=== PATIENT | female | born 1985 | race Caucasian/White ===

== ENCOUNTER → 2017-03-13 | Outpatient (CLI) | payer OTHER ==
[~2017-03-13] MED LIST: ACET325 PO; ALBU90OI INH; ALBU90OI6 INH; ALBU90OI61 INH; AMOX500 PO; CEPH500 PO; CETI10 PO; CIPR500 PO; CODGUAEL PO; CRUTCH3 USE; DIPH50 PO; ESTNORT; EXCEDRIN MIGRAINE; FLUSAL2505 IH; GLYB1.5 PO; HYDACE5 PO; IBUP600 PO; IBUP800 PO; LABE100 PO; LEVSOD50 PO; LORPSEER12 PO; NITR100CA PO; OXYACE5T PO; Omeprazole20 M1 PO; PRED20 PO; PREN-16 PO; PROM25 PO; RANI150 PO; SPIR25 PO; SULTRISS PO; TIZANIDINE HCL4 MG PO; TOPI25 PO; TYLENOL; VENL75 PO; VENL75ER PO
[2017-03-13 19:36] LABS: BASOPHILS ABSOLUTE AUTO 0.03 K/mm3 (0.00-0.23); BASOPHILS PERCENT AUTO 0 % (0-2); EOSINOPHILS ABSOLUTE AUTO 0.36 K/mm3 (0.00-0.68); EOSINOPHILS PERCENT AUTO 3 % (0-6); IMMATURE GRAN ABSOLUTE AUTO 0.03 K/mm3 (0.00-0.10); IMMATURE GRAN PERCENT AUTO 0 % (0-1); LYMPHOCYTES ABSOLUTE AUTO 2.75 K/mm3 (0.84-5.20); LYMPHOCYTES PERCENT AUTO 23 % (21-46); MONOCYTES ABSOLUTE AUTO 0.98 K/mm3 (0.16-1.47); MONOCYTES PERCENT AUTO 8 % (4-13); Mean Corpuscular HGB 27.5 pg (26.0-34.0); Mean Corpuscular HGB Conc 32.6 g/dL (31.5-36.5); Mean Corpuscular Volume 84 fL (80-100); Mean Platelet Volume 11.6 fL (9.1-12.4); NEUTROPHILS PERCENT AUTO 65 % (41-73); Platelet Count 298 K/mm3 (150-400); RDW Standard Deviation 46.5 fL (35.1-46.3); White Blood Cell Count 11.85 K/mm3 (4.00-11.30)
== END ==
LOC: LAB SHORT 15:20
PROVIDERS: Family Medicine
DX: R23.8 Other skin changes (principal); L02.211 Cutaneous abscess of abdominal wall
CPT/HCPCS: 85025

== ENCOUNTER → 2018-09-07 | Outpatient (CLI) | payer OTHER | LOC: LAB SHORT 14:45 → LAB 14:45 | DX: L02.413 Cutaneous abscess of right upper limb (principal) | CPT/HCPCS: 87070; 87075; 87077; 87186; 87205 ==

== ENCOUNTER → 2018-10-13 | Outpatient (CLI) | payer OTHER | LOC: LAB SHORT 17:15 → LAB UCHC 17:15 → LAB FUT 10-13 16:00 | DX: R19.7 Diarrhea, unspecified (principal) | CPT/HCPCS: 87493 ==

== ENCOUNTER → 2018-12-15 | Outpatient (CLI) | payer OTHER ==
[2018-12-15 15:10] LABS: Microalb/Creat Ratio UR, Rand Unable to Calculate mg/g (0.000-30.000); Microalbumin, Random Urine <5.000 mg/L (0.000-20.000)
== END ==
LOC: LAB UCHC 11:37 → LAB SHORT 11:37 → LAB FUT 11-23 10:30
PROVIDERS: Family Medicine
DX: E11.9 Type 2 diabetes mellitus without complications (principal)
CPT/HCPCS: 82043; 82570

== ENCOUNTER → 2019-05-04 | Outpatient (CLI) | payer OTHER ==
[2019-05-05 15:11] LABS: HPV 16 Negative (Negative); HPV 18 Negative (Negative); HPV OTHER HR TYPES Positive (Negative)
== END ==
LOC: LAB 12:24 → LAB SHORT 12:24
PROVIDERS: Registered Nurse Community Health
DX: Z12.4 Encounter for screening for malignant neoplasm of cervix (principal)
CPT/HCPCS: 87624; G0123

== ENCOUNTER → 2019-08-16 | Outpatient (CLI) | payer OTHER | END | disposition home or self-care (01) | LOC: LAB SHORT 09:35 → LAB 09:35 | DX: R11.2 Nausea with vomiting, unspecified (principal) | CPT/HCPCS: 87338 ==

== ENCOUNTER 2020-02-02 16:45 | Emergency (ER) | payer OTHER ==
[~2020-02-02] VITALS: Ht 167.6 cm; Wt 154.2 kg
[~2020-02-02 16:45] MED LIST changes: +ACET500 PO; +BENADRYL25 MG PO; +CLON.5 PO; +CYCL10 PO; +FLUV50 PO; +FURO20 PO; +GABA300 PO; +METF500 PO; +NYSTATIN CREAM TOP
[2020-02-02] MEDS ORDERED: CEPH500 PO (17:59)
[2020-02-02] MEDS ORDERED: Norco 5-325 Ta1 EACH PO (17:59)
== END 2020-02-02 19:56 | disposition home or self-care (01) ==
LOC: ER 16:45
DX: S68.512A Complete traumatic transphalangeal amputation of left thumb, initial encounter (principal); J45.909 Unspecified asthma, uncomplicated; F32.9 Major depressive disorder, single episode, unspecified; K21.9 Gastro-esophageal reflux disease without esophagitis; Z87.891 Personal history of nicotine dependence; Z91.012 Allergy to eggs; Z91.030 Bee allergy status; Z88.5 Allergy status to narcotic agent; Z91.09 Other allergy status, other than to drugs and biological substances; Z79.899 Other long term (current) drug therapy; Z79.84 Long term (current) use of oral hypoglycemic drugs; W27.0XXA Contact with workbench tool, initial encounter
CPT/HCPCS: 11044; 73140; 96365-59; 96375-59; 99283-25; A9270; J0690; J2060

== ENCOUNTER 2020-02-12 13:54 | Emergency (ER) | payer OTHER ==
[~2020-02-12] VITALS: Ht 167.6 cm; Wt 154.2 kg
[~2020-02-12 13:54] MED LIST changes: +Norco 5-325 Ta1 EACH PO
== END 2020-02-12 15:32 | disposition home or self-care (01) ==
LOC: ER 13:54
DX: S61.012D Laceration without foreign body of left thumb without damage to nail, subsequent encounter (principal); J45.909 Unspecified asthma, uncomplicated; K21.9 Gastro-esophageal reflux disease without esophagitis; F32.9 Major depressive disorder, single episode, unspecified; Z79.84 Long term (current) use of oral hypoglycemic drugs; Z79.899 Other long term (current) drug therapy; Z88.5 Allergy status to narcotic agent; Z91.030 Bee allergy status; Z91.09 Other allergy status, other than to drugs and biological substances; Z91.012 Allergy to eggs; Z91.018 Allergy to other foods; Z87.891 Personal history of nicotine dependence; W27.0XXD Contact with workbench tool, subsequent encounter
CPT/HCPCS: 64450; 99282-25

== ENCOUNTER 2020-06-19 08:34 | Day surgery (SDC) | payer OTHER ==
[~2020-06-19] VITALS: Ht 167.6 cm; Wt 159.4 kg
[~2020-06-19 08:34] MED LIST changes: +ALDACTONE100 MG PO; +ATIVAN0.5 MG PO; +Flonase 0.05% N16 GM; +GABA100 PO; +GLIP5 PO; +LAMO100 PO; +MONT10T PO; +OMEP20ER PO; +ONDA4 PO; +TOPI100 PO; +VENL150ER PO; +[UNRECOGNIZED DRUG - OTHER] PO
--- NOTE | 2020-06-19 09:30 | NUR ---
History, Chart, Medications and Allergies reviewed before start of procedure. Patient confirms NPO status and agrees with scheduled surgery.
[2020-06-19] MEDS ORDERED: LAMICTAL25 M2 PO (09:42)
[2020-06-19] MEDS ORDERED: EUTHYROX50 MCG PO (09:43)
[2020-06-19] MEDS ORDERED: ACETAMINOPHEN500 M2 PO (09:45)
[2020-06-19] MEDS ORDERED: PROAIR RESPICL90 MCG INH (09:46)
[2020-06-19] MEDS ORDERED: ZYRTEC10 M1 PO (09:49)
--- NOTE | 2020-06-19 11:01 | NUR ---
06/19/20 1101 Lucio Kumar MONITOR INTACT WITH CONTINUOUS PULSE OXIMETRY AND INTERMITTENT BP. History, Chart, Medications and Allergies reviewed before start of procedure.3-LEAD EKG REVIEWED WITH PHYSICIAN PRIOR TO START OF PROCEDURE.O2 VIA N/C INTACT THROUGHOUT SEDATION/PROCEDURE. HURRICAINE SPRAY TO OROPHARYX.Bite Block PlacedSee Anesthesia record.
--- NOTE | 2020-06-19 12:09 | NUR ---
Patient up to Ambulate independently. Gait steady. Discharge instructions reviewed with patient. Patient verbalizes understanding. Copy given to patient to take home. Discharged via wheelchair to private TRANSPORT HOME WITH [facility].
== END 2020-06-19 12:15 | disposition home or self-care (01) ==
LOC: ORSCMMR 08:34 → ORD 10:00 → ORSCMMR 12:15
PROVIDERS: Internal Medicine Gastroenterology
PROC: 0DB98ZX Excision of Duodenum, Via Natural or Artificial Opening Endoscopic, Diagnostic (ICD-10-PCS; principal; 2020-06-19 10:00)
PROC: 0DB68ZX Excision of Stomach, Via Natural or Artificial Opening Endoscopic, Diagnostic (ICD-10-PCS; principal; 2020-06-19 10:00)
PROC: 0DB48ZX Excision of Esophagogastric Junction, Via Natural or Artificial Opening Endoscopic, Diagnostic (ICD-10-PCS; principal; 2020-06-19 10:00)
DX: R10.13 Epigastric pain (principal); E11.9 Type 2 diabetes mellitus without complications; I10 Essential (primary) hypertension; E28.2 Polycystic ovarian syndrome; E03.9 Hypothyroidism, unspecified; F43.10 Post-traumatic stress disorder, unspecified; Z79.84 Long term (current) use of oral hypoglycemic drugs; Z79.899 Other long term (current) drug therapy; Z87.891 Personal history of nicotine dependence; E66.01 Morbid (severe) obesity due to excess calories; Z68.43 Body mass index [BMI] 50.0-59.9, adult
CPT/HCPCS: 82947; 84703; 88305; 88342; A9270; J2250; J2704; J3010; J7120

== ENCOUNTER → 2020-06-20 | Outpatient (CLI) | payer OTHER ==
[~2020-06-20] MED LIST changes: +ACETAMINOPHEN500 M2 PO; +EUTHYROX50 MCG PO; +LAMICTAL25 M2 PO; +PROAIR RESPICL90 MCG INH; +ZYRTEC10 M1 PO
[2020-06-21 14:09] LABS: HPV 16 Negative (Negative); HPV 18 Negative (Negative); HPV OTHER HR TYPES Negative (Negative)
== END | disposition home or self-care (01) ==
LOC: LAB SHORT 10:10
PROVIDERS: Nurse Practitioner
DX: Z12.4 Encounter for screening for malignant neoplasm of cervix (principal)
CPT/HCPCS: 87624; G0123

== ENCOUNTER 2020-08-09 12:51 | Emergency (ER) | payer OTHER ==
[~2020-08-09] VITALS: Ht 167.6 cm; Wt 165.6 kg
[2020-08-09 13:57] LABS: Alanine Aminotransfer (ALT/SGP 28 U/L (12-78); Albumin, Blood 3.8 g/dL (3.4-5.0); Albumin/Globulin Ratio 0.9 (0.8-1.8); Alk Phos 73 U/L (50-136); Anion Gap 6 mmol/L (6-16); Aspartate Aminotrans (AST/SGOT 36 U/L (12-37); Bilirubin, Total 0.7 mg/dL (0.1-1.0); Blood Urea Nitrogen 15 mg/dL (8-24); Bun/Creatinine Ratio 19.2 (12.0-20.0); CO2, Blood 19 mmol/L (21-32); Calcium, Blood 9.2 mg/dL (8.5-10.1); Chloride, Blood 108 mmol/L (98-108); Creatinine, Blood 0.78 mg/dL (0.40-1.00); Globulin, Blood 4.4 g/dL (2.2-4.0); Glomerular Filtration Rate >60 (60-); Glucose, Blood 161 mg/dL (70-99); Potassium, Blood 4.8 mmol/L (3.5-5.5); Sodium, Blood 133 mmol/L (136-145); Total Protein, Blood 8.2 g/dL (6.4-8.2)
[2020-08-09 14:03] LABS: BASOPHILS ABSOLUTE AUTO 0.09 K/mm3 (0.00-0.23); BASOPHILS PERCENT AUTO 1 % (0-2); EOSINOPHILS ABSOLUTE AUTO 0.22 K/mm3 (0.00-0.68); EOSINOPHILS PERCENT AUTO 2 % (0-6); Hematocrit 50.3 % (33.0-51.0); Hemoglobin 16.7 g/dL (11.5-16.0); IMMATURE GRAN ABSOLUTE AUTO 0.11 K/mm3 (0.00-0.10); IMMATURE GRAN PERCENT AUTO 1 % (0-1); LYMPHOCYTES ABSOLUTE AUTO 2.45 K/mm3 (0.84-5.20); LYMPHOCYTES PERCENT AUTO 18 % (21-46); MONOCYTES ABSOLUTE AUTO 0.86 K/mm3 (0.16-1.47); MONOCYTES PERCENT AUTO 6 % (4-13); Mean Corpuscular HGB 29.5 pg (26.0-34.0); Mean Corpuscular HGB Conc 33.2 g/dL (31.5-36.5); Mean Corpuscular Volume 89 fL (80-100); NEUTROPHILS PERCENT AUTO 73 % (41-73); RDW Coefficient Variation 13.4 % (11.7-14.2); RDW Standard Deviation 43.4 fL (35.1-46.3); Red Blood Cell Count 5.66 M/mm3 (3.80-5.20); White Blood Cell Count 13.63 K/mm3 (4.00-11.30)
[2020-08-09 15:28] LABS: Mean Platelet Volume 11.2 fL (9.1-12.4); Platelet Count 332 K/mm3 (150-400)
== END 2020-08-09 16:21 | disposition left against medical advice (07) ==
LOC: ER 12:51
PROVIDERS: Physician Assistant
DX: R11.2 Nausea with vomiting, unspecified (principal); Z53.21 Procedure and treatment not carried out due to patient leaving prior to being seen by health care provider
CPT/HCPCS: 36415; 80053; 83690; 85025; 99283

== ENCOUNTER → 2020-10-10 | Outpatient (CLI) | payer OTHER | LOC: LAB SHORT 14:45 → LAB 14:45 | DX: L08.0 Pyoderma (principal); Z91.012 Allergy to eggs; Z88.6 Allergy status to analgesic agent; Z88.8 Allergy status to other drugs, medicaments and biological substances; Z91.038 Other insect allergy status | CPT/HCPCS: 87070; 87077; 87186; 87205 ==

== ENCOUNTER → 2021-06-16 | Outpatient (CLI) | payer OTHER | END | disposition home or self-care (01) | LOC: LAB 11:45 → LAB SHORT 11:45 | DX: J02.9 Acute pharyngitis, unspecified (principal) | CPT/HCPCS: 87081 ==

== ENCOUNTER → 2021-08-28 | Outpatient (CLI) | payer OTHER ==
[2021-08-28 13:54] LABS: Candida species (DNA Probe) Negative (NEGATIVE); G. vaginalis (DNA Probe) Positive (NEGATIVE); T. vaginalis (DNA Probe) Negative (NEGATIVE)
[2021-08-30 01:07] LABS: CHLAMYDIA BY NAA Negative (Negative); GONOCOCCUS BY NAA Negative (Negative); TRICH VAG BY NAA Negative (Negative)
== END ==
LOC: LAB SHORT 10:07
PROVIDERS: Registered Nurse Community Health
DX: Z11.3 Encounter for screening for infections with a predominantly sexual mode of transmission (principal)
CPT/HCPCS: 87480; 87491; 87510; 87591; 87660; 87661

== ENCOUNTER 2021-12-30 07:18 | Day surgery (SDC) | payer OTHER ==
[~2021-12-30] VITALS: Ht 167.6 cm; Wt 159.4 kg
[~2021-12-30 07:18] MED LIST changes: +DICLOFENAC35 MG PO; +EPIPEN0.3 MG/0.3 IM; +HUMIRA SC; +METPHE10 PO
--- NOTE | 2021-12-30 08:48 | NUR ---
History, Chart, Medications and Allergies reviewed before start of procedure. Patient confirms NPO status and agrees with scheduled surgery. Assisted patient in removing nose stud per patient request. Removed with ease. Patient removed other facial piercings themselves with ease.
--- NOTE | 2021-12-30 11:30 | NUR ---
Discharge instructions reviewed with patient. Patient verbalizes understanding. Copy given to patient to take home. PT AMBULATED TO BATHROOM AND VOIDED. TOLERATING JUICE AND PUDDING WELL. ABD DERMABOND X3 C/D/I, NEW PAD GIVEN FOR PT TO USE, PT DRESSED, Discharged via wheelchair to private car for ride home.
== END 2021-12-30 11:30 | disposition home or self-care (01) ==
LOC: ORSCMMR 07:18 → ORD 08:45 → ORSCMMR 09:45
PROVIDERS: Obstetrics & Gynecology
PROC: 0UT74ZZ Resection of Bilateral Fallopian Tubes, Percutaneous Endoscopic Approach (ICD-10-PCS; principal; 2021-12-30 08:45)
DX: Z30.2 Encounter for sterilization (principal); I10 Essential (primary) hypertension; E11.9 Type 2 diabetes mellitus without complications; E03.9 Hypothyroidism, unspecified; G47.33 Obstructive sleep apnea (adult) (pediatric); Z87.891 Personal history of nicotine dependence; J45.909 Unspecified asthma, uncomplicated; E66.01 Morbid (severe) obesity due to excess calories; Z68.43 Body mass index [BMI] 50.0-59.9, adult; Z79.899 Other long term (current) drug therapy
CPT/HCPCS: 82947; 88302; 93005; 93010; J1100; J1885; J2250; J2405; J2704; J2795; J3010; J7120

== ENCOUNTER → 2022-02-22 | Outpatient (CLI) | payer OTHER | LOC: LAB 15:28 → LAB SHORT 15:28 | DX: L60.0 Ingrowing nail (principal); L03.031 Cellulitis of right toe | CPT/HCPCS: 87070; 87075; 87077; 87147; 87186; 87205 ==

== ENCOUNTER → 2022-03-26 | Outpatient (CLI) | payer OTHER ==
[2022-03-26 20:40] LABS: Campylobacter Sp Not Detected (NOT DETECT); Cryptosporidium Not Detected (NOT DETECT); Cyclospora Cayetanensis Not Detected (NOT DETECT); E. Coli O157 Not Detected (NOT DETECT); Entamoeba Histolytica Not Detected (NOT DETECT); Enteroaggregative E. coli-EAEC Not Detected (NOT DETECT); Enteropathogenic E. coli-EPEC Not Detected (NOT DETECT); Enterotoxigenic E. coli-ETEC Not Detected (NOT DETECT); Plesiomonas Shigelloides Not Detected (NOT DETECT); Salmonella Sp Not Detected (NOT DETECT); Shiga Toxin-prod E. coli-STEC Not Detected (NOT DETECT); Shigella/Enteroin E. coli-EIEC Not Detected (NOT DETECT); Vibrio Cholerae Not Detected (NOT DETECT); Vibrio Sp Not Detected (NOT DETECT); Yersinia Enterocolitica Not Detected (NOT DETECT)
[2022-03-26 20:41] LABS: Adenovirus F 40/41 Not Detected (NOT DETECT); Astrovirus Not Detected (NOT DETECT); Giardia Lamblia Not Detected (NOT DETECT); Norovirus GI/GII Not Detected (NOT DETECT); Rotavirus A Not Detected (NOT DETECT); Sapovirus Not Detected (NOT DETECT)
[2022-03-26 21:07] LABS: Microalb/Creat Ratio UR, Rand Unable to Calculate mg/g (0.000-30.000); Microalbumin, Random Urine <5.000 mg/L (0.000-20.000)
== END | disposition home or self-care (01) ==
LOC: LAB 16:04 → LAB SHORT 16:04
PROVIDERS: Family Medicine
DX: K52.9 Noninfective gastroenteritis and colitis, unspecified (principal); T36.95XA Adverse effect of unspecified systemic antibiotic, initial encounter; Z79.899 Other long term (current) drug therapy
CPT/HCPCS: 82043; 82570; 87507

== ENCOUNTER 2023-06-26 07:56 | Day surgery (SDC) | payer OTHER ==
[~2023-06-26] VITALS: Ht 167.6 cm; Wt 145.3 kg
[~2023-06-26 07:56] MED LIST changes: +CREON DR 12,001 EACH PO; +DOCU100 PO; +Lactated Ringer's 1,000 ML IV SCH; +STEGLATRO15 MG PO
[2023-06-26 08:30] VITALS: BP 130/98
[2023-06-26] MEDS ORDERED: Ondansetron HCl 2 MG / ML 2ML Vial IV ONE (08:30)
--- NOTE | 2023-06-26 08:46 | NUR ---
History, Chart, Medications and Allergies reviewed before start of procedure. Pre-Op teaching done. Pt verbalizes understanding. Ambulatory in Day Surgery. Patient States Post-Procedure ride home has been arranged W/ [facility].
[2023-06-26] MEDS ORDERED: propofoL 60 ML IV ONE ×2 (09:20→09:42)
--- NOTE | 2023-06-26 10:03 | NUR ---
06/26/23 Carmen3 Suyapa Jules PRIOR TO PROCEDURE History, Chart, Medications and Allergies reviewed before start of procedure.BITE BLOCK AND POM PLACED DR ALEMAN PROVIDING ANESTHESIA
[2023-06-26 10:17] VITALS: BP 107/79
--- NOTE | 2023-06-26 10:25 | NUR ---
PATIENT ARRANGED RIDE HOME WITH HER BOYFRIEND, LEONEL.
[2023-06-26 10:40] VITALS: BP 110/79
--- NOTE | 2023-06-26 10:51 | NUR ---
PATIENT UP TO DRESS. GAIT STEADY. DENIES DIZZINESS.
--- NOTE | 2023-06-26 10:52 | NUR ---
Discharge instructions reviewed with patient. Patient verbalizes understanding. Copy given to patient to take home. VSS. Patient states they feel ready to discharge home.
== END 2023-06-26 10:57 | disposition home or self-care (01) ==
LOC: ORSCMMR 07:56 → ORD 09:30 → ORSCMMR 10:57
PROVIDERS: Internal Medicine Gastroenterology
PROC: 0DBK8ZX Excision of Ascending Colon, Via Natural or Artificial Opening Endoscopic, Diagnostic (ICD-10-PCS; principal; 2023-06-26 09:30)
PROC: 0DB98ZX Excision of Duodenum, Via Natural or Artificial Opening Endoscopic, Diagnostic (ICD-10-PCS; principal; 2023-06-26 09:30)
PROC: 0DB68ZX Excision of Stomach, Via Natural or Artificial Opening Endoscopic, Diagnostic (ICD-10-PCS; principal; 2023-06-26 09:30)
PROC: 0DBE8ZX Excision of Large Intestine, Via Natural or Artificial Opening Endoscopic, Diagnostic (ICD-10-PCS; principal; 2023-06-26 09:30)
PROC: 0DBN8ZX Excision of Sigmoid Colon, Via Natural or Artificial Opening Endoscopic, Diagnostic (ICD-10-PCS; principal; 2023-06-26 09:30)
DX: R19.4 Change in bowel habit (principal); R10.9 Unspecified abdominal pain; K63.5 Polyp of colon; K29.70 Gastritis, unspecified, without bleeding; K31.9 Disease of stomach and duodenum, unspecified; J45.909 Unspecified asthma, uncomplicated; K64.4 Residual hemorrhoidal skin tags; K21.9 Gastro-esophageal reflux disease without esophagitis; E11.9 Type 2 diabetes mellitus without complications; F43.10 Post-traumatic stress disorder, unspecified; E66.01 Morbid (severe) obesity due to excess calories; Z68.43 Body mass index [BMI] 50.0-59.9, adult; Z79.84 Long term (current) use of oral hypoglycemic drugs; Z79.899 Other long term (current) drug therapy
CPT/HCPCS: 82947; 88305; 88342; J2405; J2704; J7120

== ENCOUNTER → 2023-10-14 | Outpatient (CLI) | payer OTHER ==
[~2023-10-14] MED LIST changes: -Lactated Ringer's 1,000 ML IV SCH
[2023-10-16 09:10] LABS: ALKALINE PHOSPHATASE, S 64 IU/L (44-121); ALT (SGPT) 29 IU/L (0-32); AST (SGOT) 20 IU/L (0-40); BILIRUBIN, TOTAL 0.2 mg/dL (0.0-1.2); BUN 22 mg/dL (6-20); BUN/CREATININE RATIO 24 (9-23); CALCIUM, SERUM 9.5 mg/dL (8.7-10.2); CARBON DIOXIDE, TOTAL 19 mmol/L (20-29); CHLORIDE, SERUM 101 mmol/L (96-106); CREATININE, SERUM 0.93 mg/dL (0.57-1.00); GLOBULIN, TOTAL 2.8 g/dL (1.5-4.5); GLUCOSE, SERUM 138 mg/dL (70-99); POTASSIUM, SERUM 4.9 mmol/L (3.5-5.2); PROTEIN, TOTAL, SERUM 6.9 g/dL (6.0-8.5); SODIUM, SERUM 138 mmol/L (134-144)
== END ==
LOC: LAB 16:36 → LAB SHORT 16:36
PROVIDERS: Family Medicine
DX: L73.2 Hidradenitis suppurativa (principal)
CPT/HCPCS: 80053

== ENCOUNTER → 2023-10-27 | Outpatient (CLI) | payer OTHER ==
[2023-10-27 13:00] LABS: Bacterial Vaginosis PCR Negative (NEGATIVE)
[2023-11-10 12:31] LABS: Candida Group, PCR DETECTED (NOT DETECT); Candida glabrata-krusei, PCR NOT DETECTED (NOT DETECT)
== END ==
LOC: LAB 09:38 → LAB SHORT 09:38
PROVIDERS: Family Medicine
DX: N39.0 Urinary tract infection, site not specified (principal)
CPT/HCPCS: 87086; 87481; 87661; 87801

== ENCOUNTER 2024-06-05 12:37 | Emergency (ER) | payer OTHER ==
[~2024-06-05] VITALS: Ht 167.6 cm; Wt 163.3 kg
[2024-06-05] MEDS ORDERED: ATOM10 PO (13:33)
[2024-06-05] MEDS ORDERED: HYDHCL25 PO (13:34)
[2024-06-05] MEDS ORDERED: ABILIFY MYCITE5 M2 PO (13:34)
[2024-06-05] MEDS ORDERED: SYMBICORT 160-4.6 GM INH (13:34)
[2024-06-05] MEDS ORDERED: METO5A PO (13:34)
[2024-06-05] MEDS ORDERED: Cyclobenzaprine5 MG PO (13:35)
[2024-06-05] MEDS ORDERED: METAMUCIL POWD575 GM (13:35)
[2024-06-05] MEDS ORDERED: FAMO20 PO (13:35)
[2024-06-05] MEDS ORDERED: THERA-D2000 UNIT PO (13:35)
[2024-06-05] MEDS ORDERED: Ketorolac Tromethamine 15mg Vial IV ONE (15:05)
[2024-06-05 15:15] VITALS: BP 135/81
== END 2024-06-05 15:14 | disposition home or self-care (01) ==
LOC: ER 12:37
DX: S43.402A Unspecified sprain of left shoulder joint, initial encounter (principal); J45.909 Unspecified asthma, uncomplicated; G43.909 Migraine, unspecified, not intractable, without status migrainosus; K21.9 Gastro-esophageal reflux disease without esophagitis; Z91.048 Other nonmedicinal substance allergy status; Z91.018 Allergy to other foods; Z91.012 Allergy to eggs; Z91.030 Bee allergy status; Z88.5 Allergy status to narcotic agent; Z88.1 Allergy status to other antibiotic agents; Z88.8 Allergy status to other drugs, medicaments and biological substances; Z79.51 Long term (current) use of inhaled steroids; Z79.890 Hormone replacement therapy; Z79.899 Other long term (current) drug therapy; Z87.891 Personal history of nicotine dependence; V89.2XXA Person injured in unspecified motor-vehicle accident, traffic, initial encounter
CPT/HCPCS: 71046; 73030; 99283-25; J1885